=== PATIENT | female | born 1990 | race Caucasian/White ===

== ENCOUNTER 2017-07-18 01:09 | Inpatient (IN) ==
[2017-07-18] MEDS ORDERED: CARBOPROST 250 MCG/ML INJECTION IM PRN (01:14)
[2017-07-18] MEDS ORDERED: CALCIUM CARBONATE Chewable 500mg TABLET PO PRN (01:14)
[2017-07-18] MEDS ORDERED: ACETAMINOPHEN 500 MG TABLET PO PRN (01:14)
[2017-07-18] MEDS ORDERED: METHYLERGONOVINE 0.2 MG/ML INJECTION IM PRN (01:14)
[2017-07-18] MEDS ORDERED: MAG-AL + SIM ORAL LIQUID 30ml PO PRN (01:14)
--- OUTSIDE RECORDS SUMMARY | 2017-07-18 01:16 | External Medical Summary | Continuity of Care Document ---
:1990 Author Organization [facility] Address [address] [place], [place] [id number] Phone Care Team Providers Name Role Phone Jose R AMARO, Nicho Unavailable Unavailable Allergies, Adverse Reactions, Alerts Substance Reaction Severity Status amoxicillin Unknown Active Cephalosporins hives Unknown Active Medications Medication Instructions Dosage Effective Dates Status Comments (start - stop) Zyrtec 10 mg tablet take 1 tablet by oral 10 MG - Active route every day as needed Problems Condition Effective Dates (start - stop) Clinical Status Supervision of other high risk - pregnancies, third trimester 31 weeks gestation of - Irregular menses Tubal Tubal Encntr for f/u exam aft trtmt for cond oth than malig neoplm Tubal - Supervision of other high risk - pregnancies, first trimester Preg care for patient w recurrent preg - loss, first trimester Pap Smear Screening, Cervix - 11 weeks gestation of - Supervision of other high risk - pregnancies, first trimester 13 weeks gestation of - Preg care for patient w recurrent preg - loss, first trimester Supervision of other high risk - pregnancies, first trimester Preg care for patient w recurrent preg - loss, first trimester 13 weeks gestation of - Supervision of other high risk - pregnancies, second trimester 20 weeks gestation of - Preg care for patient w recur preg - loss, second trimester Supervision of other high risk - pregnancies, second trimester 23 weeks gestation of - Supervision of other high risk - pregnancies, second trimester 25 weeks gestation of - Abnormal hematolog finding on - screening of mother Supervision of other high risk - pregnancies, third trimester Preg care for patient w recurrent preg - loss, third trimester Abnormal hematolog finding on - screening of mother 28 weeks gestation of - Supervision of other high risk - pregnancies, third trimester 28 weeks gestation of - Supervision of other high risk - pregnancies, third trimester 33 weeks gestation of - Maternal care for excess growth, - second tri, unsp 17 weeks gestation of - 20 weeks gestation of - Maternal care for excess growth, - second tri, unsp Preg care for patient w recur preg - loss, second trimester Abdominal Pain LLQ - Active Spastic pelvic floor syndrome - Active Ectopic (Tubal) W/O Intrauterine - Active Abdominal Pain, LUQ - Active Active Active Procedures Procedure Date Immuniz admnin, 1 vac, sngl/combo 19 Yrs + TDAP VACCINE >7 IM OB Visit No Charge Results Test Name Date and Time Measure Units Reference Range Abnormal Flag Comments Unknown Advance Directives Directive Yes / No Effective Date File Name Unknown Encounters Encounter Practice Location Reason(s) Diagnoses Date Provider Care Team Description For Visit Members Henry [place] Supervision of Horowitz In Womens other high risk 9-201 Rubina. [facility], pregnancies, 7 700 PO [address] third [email or web address] Medical 1522, weeks gestation [facility], of Ervin Jones [place], 120, [id number], [place], tel:[phone] [facility] , [place]. tel:[phone] Henry [place] Supervision of Horowitz Referring In Womens other high risk 5-201 Rubina. Provider: [facility] PA, pregnancies, 7 700 Rubina Horowitz PO Box third [email or web address] Medical [place], 700 1522, weeks gestation [facility], of Ervin [place], 120, Ervin 120, [id number], [place], [place], tel:+ [phone]. , [place]. tel: tel: [phone] Henry [place] Supervision of Srinivas-2 Horowitz In Womens other high risk 7-201 Rubina. [facility], pregnancies, 7 700 PO Box third [email or web address] Medical 1522, weeks gestation [facility], of Ervin Jones, 120, , [place], [place], tel:[phone] , [place]. tel: [phone] Henry [place] Supervision of Srinivas-2 Horowitz In Womens Ultrasound other high risk 7-201 Rubina. [facility], pregnancies, 7 700 PO Box third Medical 1522, trimesterPreg [facility], care for patient Ervin Jones, w recurrent preg 120, , loss, third [place], trimesterAbnormal [place], tel:+ hematolog finding [phone] on , [place]. screening of tel: [id number] weeks [id number] gestation of [facility] [place] Supervision of Srinivas-1 Horowitz In Womens other high risk 0-201 Rubina. [facility], pregnancies, 7 700 PO Box second Medical 1522, [email or web address] weeks [facility], gestation of Ervin Jones, pregnancyAbnormal 120, [id number], hematolog finding [place], on [place], tel:[phone] screening of [phone] mother , [place]. tel: [phone] Henry [place] Supervision of Ankush-2 Horowitz In Womens other high risk 0-201 Rubina. [facility], pregnancies, 7 700 PO Box second Medical 1522, [email or web address] weeks [facility], gestation of Ervin Jones, 120, , [place], [place], tel:[phone] , [place]. tel: [phone] Henry [place] Supervision of Ankush-0 Horowitz In Womens other high risk 5-201 Rubina. [facility], pregnancies, 7 700 PO Box second Medical 1522, [email or web address] weeks [facility], gestation of Ervin Jones, pregnancyPreg 120, [id number], care for patient [place] w recur preg [place], tel:[phone] loss, second [phone] trimester , [place]. tel: [phone] Henry [place] 20 weeks Ankush-0 Horowitz In Womens Ultrasound gestation of 5-201 Rubina. [facility], pregnancyMaternal 7 700 PO Box care for excess Medical 1522, growth, [facility], second tri, Ervin Jones, unspPreg care for 120, [id number], patient w recur [place], [place] preg loss, second [place], tel:[phone] trimester [phone] , [place]. tel: [phone] Henry [place] Maternal care for May- Horowitz In Womens excess 0-201 Rubina. [facility], growth, second 7 700 PO Box tri, [email or web address] weeks Medical 1522, gestation of [facility], Ervin Jones, 120, [id number], [place], tel:[phone] , [place]. tel: [phone] Henry [place] Supervision of Apr-1 Horowitz In Womens other high risk 2-201 Rubina. [facility], pregnancies, 7 700 PO Box first Medical 1522, trimesterPreg [facility], care for patient Ervin Jones, w recurrent preg 120, [id number], loss, first [place], [place] [id number] weeks [place], tel:[phone] gestation of [phone] [id number] , [place]. tel: [phone] Henry [place] Supervision of Apr-1 Horowitz In Womens Ultrasound other high risk 2-201 Rubina. [facility], pregnancies, 7 700 PO Box first [email or web address] Medical 1522, weeks gestation [facility], of pregnancyPreg Ervin Jones, care for patient 120, [id number], w recurrent preg [place], [place] loss, first [place], tel:[phone] trimester [phone] , [place]. tel: [phone] Henry [place] Supervision of Dec-2 Horowitz In Womens other high risk 7-201 Rubina. [facility], pregnancies, 7 700 PO Box first Medical 1522, trimesterPreg [place], care for patient , Ervin CÁRDENAS, w recurrent preg 120, [id number], loss, first [place], trimesterPap [place], tel:+ Smear Screening, [phone] [id number] [id number] weeks , [place]. gestation of tel: [phone] [facility] [place] Tubal Sep-1 Horowitz In Womens 3-201 Rubina. [facility], 6 700 PO Box Medical 1522, [place] [address] Dmitriy, Ervin C[place]RDE[place], 120, , [place], [place], tel:[phone] , [place]. tel: [phone] Henry [place] Tubal Aug-2 Horowitz In Womens 9-201 Rubina. [facility], 6 700 PO [facility] 1522, [place] [address] Dmitriy, Ervin CÁRDENAS, 120, , [place], [place], tel:[phone] , [place]. tel: [phone] Henry [place] Tubal Aug-2 Horowitz In Womens pregnancyEncntr 6-201 Rubina. [facility], for f/u exam aft 6 700 PO Box trtmt for [facility] Medical 1522, [facility] [place], [address], 120, , [place], [place], tel:[phone] , [place]. tel: [phone] Henry [place] Irregular menses Aug-0 Horowitz In Womens 4-201 Rubina. [facility], 6 700 PO Box Medical 1522, [place] [address] [place], 120, , [place], [place], tel:[phone] , [place]. tel: [phone] Henry [place] Rock-0 Norman Referring In Womens 7-201 Glen. 700 Provider: Health MARY, [address] [place] [address] [facility], 152, Ervin Jones [address] [place], 120, [place] Servin, Abel [place], [id number], [place], [address]. [place] [id number] tel: tel: , [place]. [phone] tel: [phone] Henry [place] Oct-0 Gale Referring In Womens 5-201 Rima. Provider: [facility], 5 700 [facility], 1522, Center [address]mit[address], [place], [place], [facility], [place], [id number], [place], [address]. [place], tel: tel: [phone] , [place]. tel: [phone] Family History Family Member Diagnosis Age At Onset No family history of Osteoporosis No family history of Breast Cancer No family history of Kidney Disease Mother Diabetes mellitus No family history of Thyroid Disorder Maternal Grandmother Diabetes mellitus No family history of Epilepsy No family history of Hypertension No family history of Ovarian Cancer No family history of Uterine Cancer No family history of Colon Cancer Paternal Grandfather Stroke No family history of Lung Disease No family history of Venous Thrombosis Paternal Grandfather Cardiovascular Disease No family history of Pulmonary Embolism Immunizations Vaccine Date Status Comments Tdap completed Source: New Immunization Record Payers Payer name Insurance type Covered democrat ID Authorization(s) [facility] CI [id number] [facility] CI [id number] Social History Type Description Quantity Date Captured Alcohol Use Details No Caffeine Use Details Unknown Tobacco Use Status Unknown Smoking Status Never smoker Vital Signs Date / Height Weight BMI Pulse Blood Temperature Respiratory Body Head BMI Time: Rate Pressure Rate Surface Circumference percentile Area 145.60 25.3 108/71 lbs 9 mm[Hg] 4:32 kg/m PM eter (2) Chief Complaint And Reason For Visit Unknown Chief Complaint And Reason For Visit Reason For Referral Reason For Referral Unknown Plan Of Care Date Type Action Status Appointment Amisha Guajardo BOOKED Appointment Amisha Guajardo BOOKED Appointment Amisha Guajardo BOOKED Appointment Amisha Guajardo BOOKED Appointment Amisha Guajardo BOOKED Future Order: Radiology Order Nuchal Translucency ([id number]) Ordered Future Order: Radiology Order Ultrasound OB Follow-up ([id number]) Ordered Future Order: Radiology Order Complete OB Ultrasound > 14 Ordered Weeks ([id number]) Date Type Problem Goal Intervention Status Start Date Unknown. History Of Present Illness Encounter Date Complaint History Of Present Illness This patient has no known history of present illness Functional Status Encounter Date Functional Assessment Cognitive Assessment Unknown Medications Administered Medication Instructions Dosage Effective Dates (start - stop) Status Comments Drug Treatment Unknown Instructions Date Instruction Additional Information gestational glucose lab screening toxoplasmosis precautions (cats / raw meat) sexual activity exercise indications for ultrasound influenza vaccine environmental / work hazards travel tobacco (ask, advise, assess, assist and arrange) alcohol illicit / recreational drugs use of any medications (including supplements, vitamins, herbs, OTC drugs) HIV and other routine tests risk factors identified by history anticipated course of care nutrition and weight gain counseling, special diet smoking counseling domestic violence seat belt use childbirth classes / hospital facilities hospital registration genetic testing new ob handbook
--- OUTSIDE RECORDS SUMMARY | 2017-07-18 01:16 | External Medical Summary | Continuity of Care Document ---
:1990 Author Organization [facility] Address [address] [place], [place] [id number] Phone Care Team Providers Name Role Phone Nicho Odell MD Unavailable Unavailable Allergies, Adverse Reactions, Alerts Substance [...] other high risk - pregnancies, second trimester Abnormal hematolog finding on - screening of mother 25 weeks gestation of - Irregular menses Tubal [...] other high risk - pregnancies, second trimester Preg care for patient w recur preg - loss, second trimester 20 weeks gestation of - Supervision of other [...] of mother 28 weeks gestation of - Preg care for patient w recur preg - loss, second trimester Maternal care for excess growth, - second tri, unsp 20 weeks gestation of - Maternal care for excess growth, - second tri, unsp 17 weeks gestation of - Abdominal Pain LLQ - Active Spastic pelvic floor syndrome - Active Ectopic (Tubal) W/O Intrauterine - Active Abdominal Pain, LUQ - Active Active Active Procedures Procedure Date OB Visit No Charge Results Test Name Date and Time Measure Units Reference Range Abnormal Flag Comments Panel Description: Glucose [Mass/volume] in Serum or Plasma --1 hour post 50 g glucose PO GLUCOSE, GESTATIONAL 79 mg/dL <140 N Test performed at [employer] SCREEN (50G)-140 16:27:00 DIAGNOSTICS [id number] [place] [address]Erngtwxj: JOVON BORDEN DO,MPH Panel Description: HEMOGLOBIN + HEMATOCRIT HEMOGLOBIN 16:27:00 12.0 g/dL 11.7-15.5 N HEMATOCRIT 16:27:00 33.8 % 35.0-45.0 L REPORT COMMENT:FASTING:UNKNOWNTest performed at [facility] [id number] [place] [address]Ejbcgfls: JOVON BORDEN DO,MPH Advance Directives Directive Yes / No Effective Date File Name Unknown Encounters Encounter Practice Location Reason(s) Diagnoses Date Provider Care Team Description For Visit Members Henry [place] Supervision of Srinivas-2 Horowitz In Womens other high risk 7-201 Rubina. [facility], pregnancies, 7 700 PO Box third [email or web address] Medical 1522, weeks gestation [facility], of Ervin Jones, 120, , [place], tel:[phone] , [place]. tel: [phone] Henry [place] Supervision of Srinivas-2 Horowitz In Womens Ultrasound other high risk 7-201 Rubina. [facility], pregnancies, 7 700 PO Box third Medical 1522, trimesterPreg [facility], care for patient Ervin Jones, w recurrent preg 120, , loss, third [place], [place] trimesterAbnormal [place], tel:+ hematolog finding [phone] on , [place]. screening of tel: [id number] weeks [phone] gestation of [facility] [place] Supervision of Srinivas-1 Horowitz In Womens other high risk 0-201 Rubina. [facility], pregnancies, 7 700 PO Box second Medical 1522, trimesterAbnormal [facility], hematolog finding Ervin Jones, on 120, , screening of [place], [email or web address] weeks [place], tel:[phone] gestation of [phone] , [place]. tel: [phone] Henry [place] Supervision of Ankush-2 Horowitz In Womens other high risk 0-201 Rubina. [facility], pregnancies, 7 700 PO Box second Medical 1522, weeks [facility], gestation of Ervin Jones, 120, , [place], [place], tel:[phone] , [place]. tel: [phone] Henry [place] Supervision of Ankush-0 Horowitz In Womens other high risk 5-201 Rubina. [facility], pregnancies, 7 700 PO Box second Medical 1522, trimesterPreg [facility], care for patient Ervin Jones, w recur preg 120, , loss, second [place], [id number] weeks [place], tel:[phone] gestation of [phone] , [place]. tel: [phone] Henry [place] Preg care for Ankush-0 Horowitz In Womens Ultrasound patient w recur 5-201 Rubina. [facility], preg loss, second 7 700 PO Box trimesterMaternal Medical 1522, care for excess [place], growth, Ervin Jones, second tri, 120, [id number], unsp20 weeks [place], [place] gestation of [place], tel:[phone] , [place]. tel: [phone] [facility] [place] Maternal care for May- Horowitz In Womens excess 0-201 Rubina. [facility], growth, second 7 700 PO Box tri, [email or web address] weeks Medical 1522, gestation of [facility], Ervin Jones, 120, [id number], [place], [place], tel:[phone] , [place]. tel: [phone] Henry [place] Supervision of Apr-1 Horowitz In Womens other high risk 2-201 Rubina. [facility], pregnancies, 7 700 PO Box first Medical 1522, trimesterPreg [facility], care for patient Ervin Jones, w recurrent preg 120, [id number], loss, first [place], [place] [id number] weeks [place], tel:[phone] gestation of [phone] [id number] , [place]. tel: [phone] Henry [place] Supervision of Apr-1 Horowitz In Womens Ultrasound other high risk 2-201 Rubina. [facility], pregnancies, 7 700 PO Box first Medical 1522, trimesterPreg [facility], care for patient Ervin Jones, w recurrent preg 120, [id number], loss, first [place], [place] [email or web address] weeks [place], tel:[phone] gestation of [phone] , [place]. tel: [phone] Henry [place] Supervision of Mar-2 Horowitz In Womens other high risk 7-201 Rubina. [facility], pregnancies, 7 700 PO Box first Medical 1522, trimesterPreg [facility], care for patient Ervin Jones, w recurrent preg 120, [id number], loss, first [place], [place] trimesterPap [place], tel:[phone] Smear Screening, [phone] [id number] weeks , [place]. gestation of tel:[phone] [facility] [place] Tubal Sep-1 Horowitz In Womens 3-201 Rubina. Health MARY, 6 700 [facility] 1522, [place] [address] D[address], [facility] [place], 120, [id number], [place], [place], tel:[phone] , [place]. tel:[phone] [facility] [place] Tubal Aug-2 Horowitz In Womens 9-201 Rubina. Health MARY, 6 700 [facility] 1522, [place] [address] Dmit[address], [facility] [place], 120, [id number], [place], [place], tel:[phone] , [place]. tel:[phone] [facility] [place] Tubal Aug-2 Horowitz In Womens pregnancyEncntr 6-201 Rubina. Health MARY, for f/u exam aft 6 700 PO Box trtmt for [facility] Medical 1522, [facility] [address], [facility], 120, , [place], [place], tel:[phone] , [place]. tel:[phone] [facility] [place] Irregular menses Aug-0 Horowitz In Womens 4-201 Rubina. Health MARY, 6 700 [facility] 1522, [place] [address] Dmit[address]y, [facility], 120, , [place], [place], tel:[phone] , [place]. tel:[phone] [facility] [place] Rock-0 Norman Referring In Womens 7-201 Glen. 700 Provider: Health MARY, 5 [facility], 1522, , [place] [address] Yajaira [address], [facility], [place], [place], , [place], [address]. [place] [id number] tel:+ tel:+316 , [place]. [id number] tel:[phone] [facility] [place] Tran0 Baljinder Referring In Womens 5-201 Rima. Provider: John HERNANDEZ, [address] [place] [address], 1522, [place] [address], Ervin Serv[place], 120, [place], [id number], [place], [address]. [place], tel:022 tel:[phone] , . tel:[phone] Family History Family Member Diagnosis Age At [...] Pulmonary Embolism Immunizations Vaccine Date Status Comments Unknown Payers Payer name Insurance type Covered green party ID Authorization(s) [facility] [id number] Social History Type Description Quantity Date Captured Alcohol Use Details No Caffeine Use Details Unknown Tobacco Use Status Unknown Smoking Status Never smoker Vital Signs Date / Height Weight BMI Pulse Blood Temperature Respiratory Body Head BMI Time: Rate Pressure Rate Surface Circumference percentile Area 139.90 24.3 /63 lbs 9 mm[Hg] 3:30 kg/m PM eter (2) Chief Complaint And [...] BOOKED Future Order: Radiology Order Nuchal Translucency ([id number]) Ordered Future Order: Radiology Order Ultrasound OB Follow-up ([id number]) Ordered Future Order: Radiology Order Complete OB Ultrasound > 14 Ordered Weeks ([id number]) Date Type Problem Goal Intervention Status Start [...] medications (including supplements, vitamins, herbs, OTC drugs) smoking counseling HIV and other routine tests risk factors identified by history anticipated course of care nutrition and weight gain counseling, special diet domestic violence seat belt use childbirth classes / hospital facilities hospital registration genetic testing new ob handbook
--- OUTSIDE RECORDS SUMMARY | 2017-07-18 01:16 | External Medical Summary | Continuity of Care Document ---
:1990 Author Organization [facility] [employer] [facility] Address [address] [place], [place] [id number] Phone Care Team Providers Name Role Phone Jose R AMARO Nicho Unavailable Unavailable Allergies, Adverse Reactions, Alerts Substance Reaction Severity Status amoxicillin Unknown Active Cephalosporins hives Unknown Active Medications Medication Instructions Dosage Effective Dates Status Comments (start - stop) 28 mg take 1 tablet by Not Available - Active iron-800 mcg oral route every tablet day Problems Condition Effective Dates (start - stop) Clinical Status Supervision of other high risk - pregnancies, third trimester 35 weeks gestation of - Irregular menses Tubal [...] of mother 25 weeks gestation of - Supervision of other high risk - pregnancies, third trimester Encounter for screening of - mother 36 weeks gestation of - Supervision of other [...] third trimester 31 weeks gestation of - Supervision of other high risk - pregnancies, third trimester 33 weeks gestation of - Supervision of other high risk - pregnancies, third trimester 37 weeks gestation of - Supervision of other high risk - pregnancies, third trimester 38 weeks gestation of - Preg care for patient w recur preg - loss, second trimester Maternal care for excess growth, - second tri, unsp 20 weeks gestation of - 17 weeks gestation of - Maternal care for excess growth, - second tri, unsp Abdominal Pain LLQ - Active Spastic pelvic [...] of Horowitz In Womens other high risk 3-201 [facility], pregnancies, 7 700 PO Box third [email or web address] Medical 1522, weeks gestation [facility], of Ervin Jones, 120, [id number], [place], tel:[phone] , [place]. tel:[phone] Henry [place] Supervision of Sep-2 Horowitz In Womens other high risk 6-201 [facility], pregnancies, 7 700 PO Box third Medical 1522, weeks gestation [facility], of Ervin Jones, 120, [id number], [place], tel:[phone] , [place]. tel:[phone] Henry [place] Supervision of Sep-1 Horowitz In Womens other high risk 9-201 Rubina. [facility] PA, pregnancies, 7 700 PO Box third Medical 1522, trimesterEncounte [facility], r for Ervin Jones, screening of 120, [id number], [email or web address] weeks [place], [place] gestation of [place], tel:[phone] , [place]. tel:[phone] Henry [place] Supervision of Sep-1 Horowitz In Womens other high risk 3-201 [facility]. [facility] PA, pregnancies, 7 700 PO Box third [email or web address] Medical 1522, weeks gestation [facility], of Ervin Jones, 120, [id number], [place], tel:[phone] , [place]. tel:[phone] Henry [place] Supervision of Aug-2 Horowitz In Womens other high risk 9-201 [facility]. [facility] PA, pregnancies, 7 700 PO Box third [email or web address] Medical 1522, weeks gestation [facility], of Ervin Jones, 120, [id number], [place], tel:[phone] , [place]. tel:[phone] Henry [place] Supervision of Aug-1 Horowitz Referring In Womens other high risk 5-201 Rubina. Provider: Health PA, pregnancies, 7 700 Rubina Horowitz PO Box third [email or web address] Medical K, 700 1522, weeks gestation [facility], of [place], 120, Ervin 120, [id number], [place], [place], tel: [phone]. , [place]. tel: tel: [phone] Henry [place] Supervision of Srinivas-2 Horowitz In Womens other high risk 7-201 [facility] PA, pregnancies, 7 700 PO Box third [email or web address] Medical 1522, weeks gestation [facility], of Ervin Jones, 120, , [place], [place], tel: [phone] , [place]. tel: [phone] Henry [place] Supervision of Srinivas-2 [facility]owitz In Womens Ultrasound other high risk 7-201 [facility] PA, pregnancies, 7 700 PO Box third Medical 1522, trimesterPreg [facility], care for patient Ervin Jones, w recurrent preg 120, , loss, third [place], trimesterAbnormal [place], tel: hematolog finding on , [place]. screening of tel: [email or web address] weeks [phone] gestation of Associates [place] Supervision of Srinivas-1 Horowitz In Womens other high risk 0-201 [facility]. [facility] PA, pregnancies, 7 700 PO Box second Medical 1522, trimesterAbnormal [facility], hematolog finding Ervin Jones, on 120, , screening of [place] [email or web address] weeks [place], tel: gestation of [phone] , [place]. tel: [phone] Henry [place] Supervision of Ankush-2 Horowitz In Womens other high risk 0-201 [facility] PA, pregnancies, 7 700 PO Box second Medical 1522, [email or web address] weeks [facility], gestation of Ervin Jones, 120, , [place], [place], tel: [phone] , [place]. tel: [phone] Henry [place] Supervision of Ankush-0 Horowitz In Womens other high risk 5-201 [facility] PA, pregnancies, 7 700 PO Box second Medical 1522, trimesterPreg [facility], care for patient Ervin Jones, w recur preg 120, , loss, second [place], [place] [email or web address] weeks [place], tel:[phone] gestation of [phone] , [place]. tel: [phone] Henry Webb care for Ankush-0 Horowitz In Womens Ultrasound patient w recur 5-201 [facility]. [facility] PA, preg loss, second 7 700 PO Box trimesterMaternal Medical 1522, care for excess [facility], growth, Ervin Jones, second tri, 120, [id number], [email or web address] weeks [place], [place] gestation of [place], tel:[phone] , [place]. tel: [phone] Henry [place] 17 weeks May-1 Horowitz In Womens gestation of 0-201 [facility]. [facility] PA, pregnancyMaternal 7 700 PO Box care for excess Medical 1522, growth, [facility], second tri, unsp Ervin Jones, 120, [id number], [place], tel:[phone] , [place]. tel: [phone] Henry [place] Supervision of Apr-1 Horowitz In Womens other high risk 2-201 [facility] PA, pregnancies, 7 700 PO Box first Medical 1522, trimesterPreg [facility], care for patient Ervin Jones, w recurrent preg 120, [id number], loss, first [place], [place] [email or web address] weeks [place], tel:+[phone] gestation of [phone] , [place]. tel: [phone] Henry [place] Supervision of Apr-1 Horowitz In Womens Ultrasound other high risk 2-201 [facility]. [facility] PA, pregnancies, 7 700 PO Box first Medical 1522, trimesterPreg [facility], care for patient Ervin Jones, w recurrent preg 120, [id number], loss, first [place], [place] [email or web address] weeks [place], tel:+[phone] gestation of [phone] , [place]. tel: [phone] Henry [place] Supervision of Mar-2 Horowitz In Womens other high risk 7-201 [facility] PA, pregnancies, 7 700 PO Box first Medical 1522, trimesterPreg [facility], care for patient Ervin Jones, w recurrent preg 120, , loss, first [facility] trimesterPap [place], tel: Smear Screening, [email or web address] weeks , [place]. gestation of tel: [phone] [facility] [place] Tubal Sep-1 Horowitz In Womens 3-201 [facility] PA, 6 700 PO Box Medical 1522, [place] [address] Dmitriy, [facility], 120, , [place], [place], tel:[phone] , [place]. tel: [phone] [facility] [place] Tubal Aug-2 Horowitz In Womens 9-201 [facility]. [facility] PA, 6 700 PO [facility] 1522, [place] [address] Dmitriy, [facility], 120, , [facility] [place], tel:[phone] , [place]. tel: [phone] [facility] [place] Tubal Aug-2 Horowitz In Womens pregnancyEncntr 6-201 [facility]. [facility] PA, for f/u exam aft 6 700 PO Box trtmt for [facility] Medical 1522, [facility] [place], gill Jones, [facility], 120, , [facility] [place], tel:[phone] , [place]. tel: [phone] [facility] [place] Irregular menses Aug-0 Horowitz In Womens 4-201 [facility] PA, 6 700 [facility] 1522, [place] [address] Dmitriy, [facility], 120, , [place], [place], tel: [phone] , [place]. tel: [phone] [facility] [place] Rock-0 Gale Referring In Womens 5-201 Rima. Provider: Health MARY, 5 700 [facility], 1522, [address], Ervin [place], [place], 120, [place], , [place], [address]. [facility], tel: tel:[phone] , [place]. tel:[phone] Family History Family Member Diagnosis Age At [...] Record Payers Payer name Insurance type Covered constitution party ID Authorization(s) [facility] CI [id number] [facility] CI [id number] Social History Type Description Quantity Date Captured Alcohol Use Details No Caffeine Use Details Unknown Tobacco Use Status Never smoked tobacco Smoking Status Never smoker Vital Signs Date / Height Weight BMI Pulse Blood Temperature Respiratory Body Head BMI Time: Rate Pressure Rate Surface Circumference percentile Area 25.2 1 3:32 kg/m PM eter (2) 148.20 25.8 120/71 2017 lbs 4 mm[Hg] 3:36 kg/m PM eter (2) Chief Complaint And Reason For Visit Unknown Chief Complaint And Reason For Visit Reason For Referral Reason For Referral Unknown Plan Of Care Date Type Action Status Appointment Amisha Guajardo BOOKED Future Order: Radiology Order Nuchal Translucency ([id number]) Ordered Future Order: Radiology Order Ultrasound OB Follow-up ([id number]) Ordered Future Order: Radiology Order Complete OB Ultrasound > 14 Ordered Weeks ([id number]) Date Type Problem Goal Intervention Status Start Date Unknown. History Of Present Illness Encounter Date Complaint History Of Present Illness This patient has no known history of present illness Functional Status Encounter Date Functional Assessment Cognitive Assessment Unknown Medications Administered Medication Instructions Dosage Effective Dates (start - stop) Status Comments Drug Treatment Unknown Instructions Date Instruction Additional Information group B strep screening labor signs gestational glucose lab screening toxoplasmosis precautions (cats [...]
--- OUTSIDE RECORDS SUMMARY | 2017-07-18 01:16 | External Medical Summary | Continuity of Care Document ---
:1990 Author Organization [facility] [employer] [facility] Address [address] [place], [place] [id number] Phone Care Team Providers Name Role Phone [...] third trimester 28 weeks gestation of - Irregular menses Tubal [...] third trimester 31 weeks gestation of - Preg care for patient w recur preg - loss, second trimester 20 weeks gestation of - Maternal care for excess growth, - second tri, unsp Maternal care for excess growth, - second [...] Visit Members Henry [place] Supervision of Horowitz Referring In Womens other high risk 5-201 Rubina. Provider: Health MARY, pregnancies, 7 700 Rubina Horowitz PO Box third [email or web address] Medical K, 700 1522, weeks gestation [facility], of Ervin [address] [place], 120, Ervin 120, [id number], [place], [place]ZA, tel: [phone]. [phone] , [place]. tel: tel: [phone] Henry [place] Supervision of Horowitz In Womens other high risk 7-201 Rubina. Health MARY, pregnancies, 7 700 PO Box third [email or web address] Medical 1522, weeks gestation [facility], of Ervin Jones, 120, , [place], tel:+ [phone] , [place]. tel: [phone] Henry [place] Supervision of Srinivas-2 Horowitz In Womens Ultrasound other high risk 7-201 Rubina. [facility] PA, pregnancies, 7 700 PO Box third Medical 1522, trimesterPreg [facility], care for patient Ervin Jones, w recurrent preg 120, [id number], loss, third [place], [place] trimesterAbnormal [place], tel:+ hematolog finding [phone] on , [place]. screening of tel: [email or web address] weeks [phone] gestation of [facility] [place] Supervision of Srinivas-1 Horowitz In Womens other high risk 0-201 [facility]. [facility] PA, pregnancies, 7 700 PO Box second Medical 1522, trimesterAbnormal [facility], hematolog finding Ervin Jones, on 120, , screening of [place], [email or web address] weeks [place], tel:+[phone] gestation of [phone] , [place]. tel: [phone] Henry [place] Supervision of Ankush-2 Horowitz In Womens other high risk 0-201 Rubina. [facility] PA, pregnancies, 7 700 PO Box second Medical 1522, [email or web address] weeks [facility], gestation of Ervin Jones, 120, , [place], tel:+ [phone] , [place]. tel: [phone] Henry [place] Supervision of Ankush-0 Horowitz In Womens other high risk 5-201 Rubina. [facility] PA, pregnancies, 7 700 PO Box second Medical 1522, trimesterPreg [facility], care for patient Ervin Jones, w recur preg 120, , loss, second [place], [place] [email or web address] weeks [place], tel:[phone] gestation of [phone] , [place]. tel: [phone] Henry [place] Preg care for Ankush-0 Horowitz In Womens Ultrasound patient w recur 5-201 Rubina. Health PA, preg loss, second 7 700 PO Box [email or web address] weeks Medical 1522, gestation of [facility], pregnancyMaternal Ervin Jones, care for excess 120, [id number], growth, [place], [place] second tri, unsp [place], tel:[phone] , [place]. tel: [phone] [facility] [place] Maternal care for May-1 Horowitz In Womens excess 0-201 Rubina. Health PA, growth, second 7 700 PO Box tri, [email or web address] weeks Medical 1522, gestation of [facility], Ervin Jones, 120, [id number], [place], tel:[phone] , [place]. tel: [phone] Henry [place] Supervision of Apr-1 Horowitz In Womens other high risk 2-201 Rubina. Health PA, pregnancies, 7 700 PO Box first Medical 1522, trimesterPreg [facility], care for patient Ervin Jones, w recurrent preg 120, [id number], loss, first [place], [place] [email or web address] weeks [place], tel:[phone] gestation of [phone] , [place]. tel: [phone] Henry [place] Supervision of Apr-1 Horowitz In Womens Ultrasound other high risk 2-201 Rubina. Health PA, pregnancies, 7 700 PO Box first Medical 1522, trimesterPreg [facility], care for patient Ervin Jones, w recurrent preg 120, [id number], loss, first [place], [place] weeks [place], tel:[phone] gestation of [phone] , [place]. tel: [phone] Henry [place] Supervision of Mar-2 Horowitz In Womens other high risk 7-201 Rubina. Health PA, pregnancies, 7 700 PO Box first Medical 1522, trimesterPreg [facility], care for patient Ervin Jones, w recurrent preg 120, [id number], loss, first [place], [place] trimesterPap [place], tel:+[phone] Smear Screening, [phone] [id number] weeks , [place]. gestation of tel:[phone] [facility] [place] Tubal Sep-1 Horowitz In Womens 3-201 [facility]. [facility] PA, 6 700 PO Box Medical 1522, [facility], Ervin Jones, 120, [id number], [place], [place], tel:[phone] , [place]. tel: [phone] [facility] [place] Tubal Aug-2 Horowitz In Womens 9-201 Rubina. Health MARY, 6 700 [facility] 15[address], [address] Dmitriy, [facility] [place], 120, [id number], [place], tel: [phone] , [place]. tel: [phone] [facility] [place] Tubal Aug-2 Horowitz In Womens pregnancyEncntr 6-201 Rubina. Health MARY, for f/u exam aft 6 700 PO Box trtmt for [facility] 1522, [facility] [address], [facility], 120, [id number], [place], [place], tel:[phone] , [place]. tel: [phone] [facility] [place] Irregular menses Aug-0 Horowitz In Womens 4-201 Rubina. Health MARY, 6 700 [place] [id number], [address] Dmitriy, [facility], 120, , [place], [place], tel:[phone] , [place]. tel:[phone] Associates [place] Rock-0 Norman Referring In Womens 7-201 [place]. 700 Provider: Health MARY, 5 [facility], [facility], , [facility] [address], [facility], [place], Raquel [place], , [place], [address]. [place] [id number] tel: tel: , [place]. tel:[phone] [facility] [place] Tran0 Baljinder Referring In Womens 5-201 Rima. Provider: [facility] MARY, [address] [place] [address], [facility], [place] [address], Ervin [place], [place], 120, [place], [id number], [place], [address]. [place], tel: tel:[phone] , [place]. tel:[phone] Family History Family Member Diagnosis Age At [...] Record Payers Payer name Insurance type Covered libertarian ID Authorization(s) [facility] CI [id number] [facility] CI [id number] Social History Type Description Quantity Date Captured Alcohol Use Details No Caffeine Use Details Unknown Tobacco Use Status Unknown Smoking Status Never smoker Vital Signs Date / Height Weight BMI Pulse Blood Temperature Respiratory Body Head BMI Time: Rate Pressure Rate Surface Circumference percentile Area 141.20 24.6 114/62 2017 lbs 2 mm[Hg] 8:36 kg/m AM eter (2) 9 8:25 kg/m AM eter (2) Chief Complaint And Reason For Visit Unknown Chief Complaint And Reason For Visit Reason For Referral Reason For Referral Unknown Plan Of Care Date Type Action Status Appointment Amisha Guajardo BOOKED Appointment Amisha Guajardo BOOKED Appointment Amisha Guajardo BOOKED Appointment Amisha Guajardo BOOKED Appointment Amisha Guajardo BOOKED Appointment Amisha Guajardo BOOKED Future Order: Radiology Order Nuchal Translucency ([id number]) Ordered Future Order: Radiology Order Ultrasound OB Follow-up ([id number]) Ordered Future Order: Radiology Order Complete OB Ultrasound > 14 Ordered Weeks ([id number]) Date Type Problem Goal Intervention Status Start [...]
--- OUTSIDE RECORDS SUMMARY | 2017-07-18 01:17 | External Medical Summary | Continuity of Care Document ---
:1990 Author Organization [facility] [facility] Address [address] [place], [place] [id number] Phone Care Team Providers Name Role Phone [...] of mother 28 weeks gestation of - Irregular menses [...] - Active Active Active Procedures Procedure Date Ultrasnd preg uterus, flwup/repeat Results Test Name Date and Time Measure Units Reference Range Abnormal Flag Comments Unknown Advance Directives Directive Yes / No Effective Date File Name Unknown Encounters Encounter Practice Location Reason(s) Diagnoses Date Provider Care Team Description For Visit Members Henry [place] Supervision of Horowitz Referring In Womens other high risk 5-201 Rubina. Provider: Health MARY, pregnancies, 7 700 Rubina Horowitz PO Box third [email or web address] Medical K, 700 1522, weeks gestation [facility], of , [facility] Dr C[place], 120, Ervin 120, [id number], [place], [place] C[place], tel:[phone]. [phone] , . tel: tel: [phone] Henry [place] Supervision of Horowitz In Womens other high risk 7-201 Rubina. Health MARY, pregnancies, 7 700 PO Box third [email or web address] Medical 1522, weeks gestation [facility] of Ervin Jones, 120, [id number], [place], tel:+ [phone] , [place]. tel: [phone] Henry [place] Supervision of Srinivas-2 Horowitz In Womens Ultrasound other high risk 7-201 Rubina. Health PA, pregnancies, 7 700 PO Box third Medical 1522, trimesterPreg [facility], care for patient Ervin Jones, w recurrent preg 120, [id number], loss, third [place], [place] trimesterAbnormal [place], tel:+[phone] hematolog finding [phone] 196790 on , [place]. screening of tel: [email or web address] weeks [phone] gestation of Associates [place] Supervision of Srinivas-1 Horowitz In Womens other high risk 0-201 Rubina. Health PA, pregnancies, 7 700 PO Box second Medical 1522, trimesterAbnoal [facility], hematolog finding Ervin Jones, on 120, , screening of [place], [id number] weeks [place], tel:+[phone] gestation of [phone] , [place]. tel: [phone] Henry [place] Supervision of Ankush-2 Horowitz In Womens other high risk 0-201 Rubina. Health PA, pregnancies, 7 700 PO Box second Medical 1522, [email or web address] weeks [facility], gestation of Ervin Jones, 120, [id number], [place], [place], tel:+ [phone] , [place]. tel: [phone] Henry [place] Supervision of Ankush-0 Horowitz In Womens other high risk 5-201 Rubina. Health PA, pregnancies, 7 700 PO Box second Medical 1522, trimesterPreg [facility], care for patient Ervin Jones, w recur preg 120, , loss, second [place], [place] [email or web address] weeks [place], tel:+[phone] gestation of [phone] , [place]. tel: [phone] Henry [place] Preg care for Ankush-0 Horowitz In Womens Ultrasound patient w recur 5-201 Rubina. Health PA, preg loss, second 7 700 PO Box [email or web address] weeks Medical 1522, gestation of [facility], pregnancyMaternal Ervin Jones, care for excess 120, [id number], growth, [place], [place] second tri, unsp [place], tel:[phone] , [place]. tel: [phone] Henry [place] Maternal care for May- Horowitz In Womens excess 0-201 Rubina. Health PA, growth, second 7 700 PO Box tri, [email or web address] weeks Medical 1522, gestation of [facility], Ervin Jones, 120, [id number], [place], [place], tel:[phone] , [place]. tel: [phone] Henry [place] Supervision of Apr-1 Horowitz In Womens other high risk 2-201 Rubina. Health PA, pregnancies, 7 700 PO Box first Medical 1522, trimesterPreg [facility], care for patient Ervin Jones, w recurrent preg 120, [id number], loss, first [place], [place] [id number] weeks [place], tel:+[phone] gestation of [phone] , [place]. tel: [phone] Henry [place] Supervision of Apr-1 Horowitz In Womens Ultrasound other high risk 2-201 Rubina. Health PA, pregnancies, 7 700 PO Box first Medical 1522, trimesterPreg [facility], care for patient Ervin Jones, w recurrent preg 120, [id number], loss, first [place], [place] [id number] weeks [place], tel:+[phone] gestation of [phone] , [place]. tel: [phone] Henry [place] Supervision of Mar-2 Horowitz In Womens other high risk 7-201 Rubina. Health PA, pregnancies, 7 700 PO Box first Medical 1522, trimesterPreg [facility], care for patient Ervin Jones, w recurrent preg 120, [id number], loss, first [place], [place] trimesterPap [place], tel:[phone] Smear Screening, [phone] [id number] Cqceyf45 weeks , [place]. gestation of tel:[phone] Henry [place] Tubal Sep-1 Horowitz In Womens 3-201 Rubina. Health PA, 6 700 PO Box Medical 1522, [address], [facility] [place], 120, [id number], [place], [place], tel:+ [phone] , [place]. tel: [phone] [facility] Tubal Aug-2 Horowitz In Womens 9-201 Rubina. Health PA, 6 700 [facility] 1522, [address] Dmitriy, [facility] [place], 120, [id number], [place], [place], tel: [phone] , [place]. tel: [phone] [facility] [place] Tubal Aug-2 Horowitz In Womens pregnancyEncntr 6-201 Rubina. Health PA, for f/u exam aft 6 700 PO Box trtmt for [facility] 1522, [facility] [address], [facility], 120, [id number], [place], [place], tel:[phone] , [place]. tel: [phone] [facility] Irregular menses Aug-0 Horowitz In Womens 4-201 Rubina. Health MARY, 6 700 [facility] 1522, [address] Dmitriy, [facility] [place], 120, , [place], [place], tel:[phone] , [place]. tel:[phone] [facility] [place] Rock-0 Norman Referring In Womens 7-201 Glen. 700 Provider: Health MARY, 5 [facility], [employer], , [place] [address] [address], [facility], [place], [place], , [place], [address]. [place] [id number] tel: tel: , [place]. [id number] tel:[phone] [facility] [place] Tran0 Baljinder Referring In Womens 5-201 Rima. Provider: Health MARY, [address] [place] [address], [facility], Center [address], Ervin [place], [place], 120, [place], [id number], [place], [address]. [place], tel: tel:[phone] , [place]. tel:[phone] Family History Family Member Diagnosis Age At [...] Record Payers Payer name Insurance type Covered green party ID Authorization(s) [facility] CI [id number] [facility] CI [id number] Social History Type Description Quantity Date Captured Unknown Vital Signs Date / Height Weight BMI Pulse Blood Temperature Respiratory Body Head BMI Time: Rate Pressure Rate Surface Circumference percentile Area Unknown Chief Complaint And Reason For Visit Unknown Chief Complaint And Reason For Visit Reason For Referral Reason For Referral Unknown Plan Of Care Date Type Action Status Appointment Amisha Guajardo BOOKED Appointment Amisha Guajardo BOOKED Appointment Amisha Guajardo BOOKED Appointment Amisha Guajardo BOOKED Appointment Amisha Guajardo BOOKED Appointment Amisha Guajardo BOOKED Future Order: Radiology Order Ultrasound OB Follow-up ([id number]) Ordered Future Order: Radiology Order Nuchal Translucency ([id number]) Ordered Future Order: Radiology Order Complete OB Ultrasound > 14 Ordered Weeks ([id number]) Date Type Problem Goal Intervention Status Start [...]
--- OUTSIDE RECORDS SUMMARY | 2017-07-18 01:17 | External Medical Summary | Continuity of Care Document ---
:1990 Author Organization [facility] Address [address] [place], [place] [id number] Phone Care Team Providers Name Role Phone [...] third trimester 31 weeks gestation of - Maternal care for [...] For Visit Members Henry [place] Supervision of Jun- Horowitz In Womens other high risk 3-201 Rubina. [facility], pregnancies, 7 700 [address] third [email or web address] Medical 1522, weeks gestation [facility] Ervin Jones, 120, [id number], [place], tel:[phone] , [place]. tel:[phone] Henry [place] Supervision of Horowitz In Womens other high risk 9-201 Health [place], pregnancies, 7 700 PO Box third [email or web address] Medical 1522, weeks gestation [facility], of [place]vin [place], 120, [id number], [place], [place], tel:[phone] , [place]. tel: [phone] Henry [place] Supervision of May- Horowitz Referring In Womens other high risk 5-201 Rubina. Provider: [facility] [place], pregnancies, 7 700 Rubina Horowitz PO Box third [email or web address] Medical K, 700 1522, weeks gestation [facility], of [place], 120, Ervin 120, , [place], [place], [place], tel:[phone]. , [place]. tel: tel: [phone] Henry [place] Supervision of Apr-2 Horowitz In Womens other high risk 7-201 Rubina. [facility] [place], pregnancies, 7 700 PO Box third [email or web address] Medical 1522, weeks gestation [facility], of [place], 120, , [place], [place], tel:[phone] , [place]. tel: [phone] Henry [place] Supervision of Apr- Horowitz In Womens Ultrasound other high risk 7-201 Rubina. [facility] [place], pregnancies, 7 700 PO Box third Medical 1522, trimesterPreg [facility], care for patient [place], w recurrent preg 120, [id number], loss, third [place], [place] trimesterAbnormal [place], tel:+ hematolog finding on , [place]. screening of tel: weeks [phone] gestation of Henry [place] Supervision of Apr-1 Horowitz In Womens other high risk 0-201 Rubina. [facility] [place], pregnancies, 7 700 PO Box second Medical 1522, [email or web address] weeks [facility], gestation of [place], pregnancyAbnormal 120, , hematolog finding [place], on [place], tel:[phone] screening of [phone] mother , [place]. tel: [phone] Henry [place] Supervision of Ankush-2 Horowitz In Womens other high risk 0-201 Rubina. [facility] [place], pregnancies, 7 700 PO Box second Medical 1522, [email or web address] weeks [facility], gestation of [place], 120, , [place], tel:[phone] , [place]. tel: [phone] [facility] [place] Supervision of Ankush-0 Horowitz In Womens other high risk 5-201 Rubina. [facility] [place], pregnancies, 7 700 PO Box second Medical 1522, [email or web address] weeks [facility], gestation of [place], pregnancyPreg 120, [id number], care for patient [place], [place] w recur preg [place], tel:[phone] loss, second [phone] trimester , [place]. tel: [phone] [facility] [place] 20 weeks Ankush-0 Horowitz In Womens Ultrasound gestation of 5-201 Rubina. Health MARY, pregnancyMaternal 7 700 PO Box care for excess Medical 1522, growth, [facility], second tri, [place], unspPreg care for 120, , patient w recur [place], [place] preg loss, second [place], tel:[phone] trimester [phone] , [place]. tel: [phone] Henry [place] Maternal care for May- Horowitz In Womens excess 0-201 Rubina. [facility] [place], growth, second 7 700 PO Box tri, [email or web address] weeks Medical 1522, gestation of [facility], Er[place] Jones, 120, , [place], tel:[phone] , [place]. tel: [phone] Henry [place] Supervision of Apr-1 Horowitz In Womens other high risk 2-201 Rubina. [facility] [place], pregnancies, 7 700 PO Box first Medical 1522, trimesterPreg [facility], care for patient [place], w recurrent preg 120, , loss, first [place], [place] [email or web address] weeks [place], tel:[phone] gestation of [phone] , [place]. tel: [phone] Henry [place] Supervision of Apr-1 Horowitz In Womens Ultrasound other high risk 2-201 Rubina. [facility] [place], pregnancies, 7 700 PO Box first [email or web address] Medical 1522, weeks gestation [facility], of pregnancyPreg [place], care for patient 120, [id number], w recurrent preg [place], [place] loss, first [place], tel:+ [phone] , [place]. tel: [phone] [facility] [place] Supervision of Mar-2 Horowitz In Womens other high risk 7-201 Rubina. [facility] [place], pregnancies, 7 700 PO Box first Medical 1522, trimesterPreg [facility], care for patient [place], w recurrent preg 120, [id number], loss, first [place], [place] trimesterPap [place], tel:+ Smear Screening, [id number] weeks , [place]. gestation of tel: [phone] [facility] [place] Tubal Sep-1 Horowitz In Womens 3-201 Rubina. Health MARY, 6 700 PO Box Medical 1522, [place] [address] [place], 120, , [place], [place], tel:+ [phone] , [place]. tel: [phone] [facility] [place] Tubal Aug-2 Horowitz In Womens 9-201 Rubina. Health MARY, 6 700 PO Box Medical 1522, [place] [address], [place], 120, [id number], [place], [place], tel:+ [phone] , [place]. tel: [phone] [facility] [place] Tubal Aug-2 Horowitz In Womens pregnancyEncntr 6-201 Rubina. Health MARY, for f/u exam aft 6 700 PO Box trtmt for cond Medical 1522, [facility] Dmitriy, [address] [place], 120, , [place], [place], tel:[phone] , [place]. tel: [phone] [facility] [place] Irregular menses Aug-0 Horowitz In Womens 4-201 Rubina. Health MARY, 6 700 PO Box Medical 1522, [place] [address] [place], 120, [id number], [place], [place], tel:[phone] , [place]. tel: [phone] Henry [place] Rock-0 Baljinder Referring In Womens 5-201 Rima. Provider: [facility] MARY, 5 700 [facility], 1522, Center [address], [place], [place], 120, [place], [id number], [place], [address]. [facility], tel: tel: [phone] [facility] , . tel: [phone] Family History Family Member Diagnosis Age At [...] name Insurance type Covered democrat ID Authorization(s) [facility] CI [id number] [facility] CI [id number] Social History Type Description Quantity Date Captured Alcohol Use Details No Caffeine Use Details Unknown Tobacco Use Status Unknown Smoking Status Never smoker Vital Signs Date / Height Weight BMI Pulse Blood Temperature Respiratory Body Head BMI Time: Rate Pressure Rate Surface Circumference percentile Area 144.60 25.2 lbs 1 mm[Hg] 4:26 kg/m PM eter (2) 9 4:22 kg/m PM eter (2) Chief Complaint And Reason For Visit Unknown Chief Complaint And Reason For Visit Reason For Referral Reason For Referral Unknown Plan Of Care Date Type Action Status Appointment Amisha Guajardo BOOKED Appointment Amisha Guajardo BOOKED Appointment Amisha Guajardo BOOKED Appointment Amisha Guajardo BOOKED Future Order: Radiology Order Nuchal Translucency ([id number]) Ordered Future Order: Radiology Order Ultrasound OB Follow-up ([id number]) Ordered Future Order: Radiology Order Complete OB Ultrasound > 14 Ordered Weeks ([id number]) Date Type Problem Goal Intervention Status Start Date Unknown. History Of Present Illness Encounter Date Complaint History Of Present Illness This patient has no known history of present illness Functional Status Encounter Date Functional Assessment Cognitive Assessment Unknown Medications Administered Medication Instructions Dosage Effective Dates (start - stop) Status Comments Drug Treatment Unknown Instructions Date Instruction Additional Information labor signs gestational glucose lab screening toxoplasmosis [...]
[2017-07-18 01:34] VITALS: BMI 26.2
[2017-07-18] MEDS: LR 1,000 ML IV PRN ×3 (01:40→07:17)
[2017-07-18] MEDS ORDERED: HYDROCORTISONE 2.5% CREAM 30gm RECTALLY PRN (13:42)
[2017-07-18] MEDS ORDERED: IBUPROFEN 800 MG TABLET PO PRN (13:42)
[2017-07-18] MEDS ORDERED: OXYTOCIN DRIP 30 UNIT/500 ML ML IV SCH (13:42)
[2017-07-18] MEDS ORDERED: DiphenhydrAMINE 25 MG CAPSULE PO PRN (13:42)
[2017-07-18] MEDS ORDERED: HYDROCODONE/APAP 5mg/325mg TABLET PO PRN (13:42)
--- NOTE | 2017-07-18 14:48 | Labor and Delivery Note ---
DATE OF DELIVERY 07/18/2017 DELIVERY NOTE Amisha is a 26-year-old, G6, P0, at 38 weeks 2 days gestational age who presented to [facility] with spontaneous rupture of membranes. She was 3 cm on arrival and isabella so we never had to start Pitocin. She progressed steadily on throughout labor and never received an epidural either. She pushed for approximately 2 hours and delivered in the squatting position. She had a spontaneous vaginal delivery in the KALEIGH position of a viable male infant, Apgars 9/9, weight 2975 g, name "Sesar." Baby was vigorous at delivery, so he was placed on mom's abdomen and the cord clamping was delayed for more than 2 minutes. The placenta delivered spontaneously. She had a small laceration of the left sulcus. This was bleeding, so it was injected with local and repaired with 2-0 chromic. Mom and baby tolerated the delivery well. [facility]
--- NOTE | 2017-07-19 08:37 | OB/GYN Progress Note ---
OB-PP Progress Note - General PPD1 Maternal Group B Strep: Negative Maternal blood type: A+ Maternal Rubella Status: Immune - Subjective Date: 07/19/17 Lochia: Minimal Pain: contolled Voiding: voiding - Objective Vital Signs: Last Vital Signs Temp 98.7 F 07/19/17 06:03 Pulse 86 07/19/17 06:03 Resp 16 07/19/17 06:03 BP 116/71 07/19/17 06:03 Urine Output: good General: alert and oriented Extremities: non-tender - Assessment Assessment: - Plan Plan: routine care, discharge home, continue PNV
[2017-07-19] MEDS ORDERED: DOCUSATE CALCIUM 240 MG CAPSULE PO SCH (09:00)
[2017-07-19 13:32] VITALS: BP 116/76; PULSE 84; RESP 14; TEMP 98.2; O2SAT 100
== END 2017-07-19 14:15 | disposition home or self-care (01) | DRG 775 ==
LOC: MC 01:09
PROVIDERS: ADMIT Obstetrics & Gynecology; ATTEND Obstetrics & Gynecology